=== PATIENT | male | born 1950 | race Caucasian/White ===

== ENCOUNTER 2025-05-11 09:42 | Emergency (ER) | payer OTHER, SELFPAY ==
[2025-05-11] VITALS (13 sets, daily range): BP systolic 97–165; BP diastolic 49–77; PULSE 49–77; RESP 12–21; TEMP 36.3; O2SAT 90–97; BMI 32.3
--- NOTE | 2025-05-11 10:39 | XRR_ITS ---
PROCEDURE INFORMATION: Exam: XR Chest Exam date and time: 05/11/2025 10:46 AM Age: 74 years old Clinical indication: Cough and dyspnea; Additional info: Dyspnea/cough TECHNIQUE: Imaging protocol: Radiologic exam of the chest. Views: 1 view. COMPARISON: No relevant prior studies available. FINDINGS: Lungs: Suboptimal pulmonary expansion with associated accentuation of bronchovascular markings. Borderline pulmonary vascular congestion accentuated by technique. Pleural spaces: No pleural effusion. Heart/Mediastinum: Cardiomediastinal contours accentuated by low lung volumes and AP technique. Bones/joints: Right shoulder replacement. Nonspecific basilar pulmonary opacities including coarsened reticular markings and ground-glass opacities are present, greater on the left. In absence of prior studies, findings indeterminate for scar, atelectasis and/or pneumonitis. XR/XR chest 1V portable 39684 IMPRESSION: Evaluation limited by portable technique in absence of prior exams. Nonspecific basilar pulmonary opacities of indeterminate chronicity; comparison with older studies and/or PA and lateral projections could be helpful further assessment.
--- NOTE | 2025-05-11 10:40 | CT_ITS ---
WS: [id number] CT HEAD TECHNIQUE: Noncontrast CT of the head obtained from the skullbase to the vertex. CLINICAL INFORMATION: AMS COMPARISON: None. DLP: 1366.[address] scans at [facility] use at least one of these dose optimization techniques: automated exposure control; mA and/or kV adjustment per patient size (includes targeted exams where dose is matched to clinical indication); or iterative reconstruction. FINDINGS: No evidence of intracranial hemorrhage. Air-fluid levels overlying the frontal lobes bilaterally with scattered locules of air overlying the LEFT greater than RIGHT frontal lobes and extending along the interhemispheric fissure. Small amount of low-attenuation subdural fluid overlying the frontal lobes. Some of this may be due to recent spine surgery but suspicious for superimposed infection. Small amount of air extends over both cerebral convexities at the vertex. No mass effect or hydrocephalus. Moderate small vessel changes. Moderate parenchymal volume loss. Vascular calcification. No visualized calvarial fractures. Mastoid air cells are well aerated. CT/CT head wo con* 13512 IMPRESSION: 1. No evidence of intracranial hemorrhage 2. Air-fluid levels overlying the inferior frontal lobes bilaterally with scat tered locules of air over the LEFT greater than RIGHT hemispheres extending yoni ng the interhemispheric fissure. Small amount of subdural extra-axial fluid. So me of this may be postoperative from recent spine surgery but consider superimp osed infection. This can be seen with dural tears or CSF leaks related to spine surgery 3. No visualized calvarial fractures. 4. No hydrocephalus.
--- NOTE | 2025-05-11 10:47 | CT_ITS ---
WS: [id number] CT CERVICAL TRAUMA TECHNIQUE: Noncontrast CT of the cervical spine with coronal and sagittal reformatted images. CLINICAL INFORMATION: neck pain COMPARISON: None. DLP: 1366.[address] scans at [facility] use at least one of these dose optimization techniques: automated exposure control; mA and/or kV adjustment per patient size (includes targeted exams where dose is matched to clinical indication); or iterative reconstruction. FINDINGS: Postoperative changes of decompressive laminectomy defects at C4 and C5 with decompression of the spinal canal. Low-attenuation fluid in the laminectomy defect with a few locules of air. Fluid collection measures approximately 5.2 x 3.1 cm. Canal stenosis appears improved. Multilevel bony foraminal narrowing with spondylitic changes. Fluid collection may be due to postoperative seroma but locules of air are suspicious for infection or CSF leak CT/CT cervical spin wo con* [id number] IMPRESSION: 1. Postoperative changes C4-5 decompressive laminectomies with low-attenuation fluid in the laminectomy defects with a few locules of air. This may be due to postoperative seroma but suspicious for superimposed infection and/or CSF leak . 2. No high-grade central canal stenosis.
[2025-05-11 10:56] LABS: Glucose Point of Care 122 mg/dL (70-110)
[2025-05-11 11:42] LABS: Basophils % 0.1 %; Eosinophils % 0.5 %; Hematocrit 39.9 % (37-53); Lymphocytes # 1.1 10^3/uL (0.8-4.8); Lymphocytes % 12.5 %; Mean Corpuscular HGB Conc 33.1 g/dL (30-55); Mean Corpuscular Hemoglobin 32.9 pg (27-33); Mean Corpuscular Volume 99.5 fl (82-101); Mean Platelet Volume 9.4 fL (7.4-10.4); Monocytes # 0.9 10^3/uL (0.2-0.9); Monocytes % 10.7 %; Neutrophils # 6.43 10^3/uL (1.8-7.7); Neutrophils % 74.8 %; Nucleated Red Blood Cells % 0 %; Platelet Count 258 10^3/cmm (157-399); Red Blood Count 4.01 10^6/uL (3.85-5.65); Red Cell Distribution Width 13.3 % (12.1-15.1); White Blood Count 8.59 10^3/uL (3.29-11.43)
--- NOTE | 2025-05-11 11:55 | ECG_ITS ---
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 Measurements Intervals [place] Rate: 51 P: 61 [place]: 169 QRS: 32 QRSD: 104 T: 53 QT: 499 QTc: 460 Interpretive Statements SINUS BRADYCARDIA PROLONGED QT INTERVAL No previous ECG available for comparison Electronically Signed On 05-13-2025 06:18:36 CDT by Pb Mayorga M.D. [email or web address]
[2025-05-11 12:03] LABS: Alanine Aminotransferase 65 U/L (0-41); Albumin Level 3.7 g/dL (3.5-5.2); Alcohol Level 56 mg/dL (0-10); Alkaline Phosphatase 74 U/L (40-130); Anion Gap 22.6 (5-19); Aspartate Amino Transferase 44 U/L (0-40); Blood Urea Nitrogen 22 mg/dL (8-23); C Reactive Protein 7.2 mg/L (0.0-4.9); Calcium 8.4 mg/dL (8.5-10.5); Carbon Dioxide 17 mmol/L (22-29); Chloride 98 mmol/L (98-107); Creatinine Clr Calc Pharmacy 70.5193; Globulin 2.3 g/dL (1.3-4.6); Glucose 103 mg/dL (65-115); Lipase 43 U/L (13-60); Osmolality Calculated 282 mOsm/kg (285-295); Potassium 3.6 mmol/L (3.5-5.1); Sodium 134 mmol/L (136-145); Total Bilirubin 0.2 mg/dL (0.15-1.2); Troponin(5th) Baseline 10 ng/L (0-15)
[2025-05-11 12:04] LABS: Acetaminophen < 5.0 ug/mL (10-30); Salicylate < 0.3 mg/dL (3-10)
--- NOTE | 2025-05-11 12:17 | W.ED.WEAKNES ---
HPI - Weakness General: Chief complaint: Weakness Stated complaint: AMS Time Seen by Provider: 05/11/25 10:39 History of Present Illness: 74-year-old male presents emergency room for weakness. Patient was found by his family on sitting on the toilet around 5 AM at 845 they called EMS and is still not able to get up. Patient admits to having been drinking heavily all night his blood alcohol is still elevated. He is complaining of continued neck pain he recently had a mass in his neck that was biopsied had a cervical laminectomy then mass was biopsied this was done at [facility] in [place]. He now is complaining of neck pain. He denies fever he is slow to answer but is able to answer questions. Associated symptoms: Denies chest pain, chills, dysuria or fever(s) Review of Systems Const: Denies: fever(s) or chills Card: Denies: chest pain Resp: Denies: dyspnea GI: Denies: abdominal pain : Denies: dysuria, urinary frequency or urinary urgency Musc: Reports: neck pain; Denies: back pain Skin/Breast: Denies: rash Physical Exam Const: ORIENTATION/CONSCIOUSNESS: Yes awake HENMT: COMMON NORMALS: normocephalic, atraumatic and hearing grossly normal bilaterally HEAD & SCALP: normocephalic and atraumatic Resp: COMMON NORMALS: normal respiratory effort, No retractions, No use of accessory muscles and clear to auscultation bilaterally AUSCULTATION: clear to auscultation bilaterally Cardio: COMMON NORMALS: regular rate, regular rhythm and No murmurs present (Cardio) RATE: regular rate RHYTHM: regular rhythm GI: COMMON NORMALS: Soft to palpation and No hepatosplenomegaly present AUSCULTATION: Yes normoactive bowel sounds PALPATION: Yes Soft to palpation, No Tenderness to palpation present (GI), No Guarding due to palpation present (GI) and Yes No hepatosplenomegaly present Extremity: COMMON NORMALS: normal to inspection, capillary refill normal, no clubbing, cyanosis or edema, no calf tenderness and no pedal edema Skin: COMMON NORMALS: no rashes or lesions noted GENERAL SKIN EXAM: no rashes or lesions noted Course Vital Signs: Vital signs: Vital Signs Temperature 97.4 F L 05/11/25 09:50 Pulse Rate 68 05/11/25 18:06 Respiratory Rate 16 05/11/25 17:00 Blood Pressure 165/77 05/11/25 18:06 Pulse Oximetry 97 05/11/25 18:06 MDM - Weakness Medical Decision Making CTs of the neck and head that showed pneumocephaly and air-fluid levels concerning for possible postop infection discussed with neurosurgery at . They would like to have the patient come back up if they are making arrangements for transfer. Prophylactically started him on Vanco and Zosyn his lactate is slightly elevated at 2.4. His white count is normal. Discussed with his neurosurgery at [place] refers to his procedure done and they agree to accept the patient in transfer are concerned about his findings and his ability to manage his own levels of care. They agree with antibiotics at this time. Medical Records I reviewed the patient's medical records. Lab Data I reviewed the patient's lab results. 05/11/25 11:25 05/11/25 11:25 Radiology Impressions Chest X-Ray 05/11/25 10:39 IMPRESSION: Evaluation limited by portable technique in absence of prior exams. Nonspecific basilar pulmonary opacities of indeterminate chronicity; comparison with older studies and/or PA and lateral projections could be helpful further assessment. Head CT 05/11/25 10:40 IMPRESSION: 1. No evidence of intracranial hemorrhage 2. Air-fluid levels overlying the inferior frontal lobes bilaterally with scattered locules of air over the LEFT greater than RIGHT hemispheres extending along the interhemispheric fissure. Small amount of subdural extra-axial fluid. Some of this may be postoperative from recent spine surgery but consider superimposed infection. This can be seen with dural tears or CSF leaks related to spine surgery 3. No visualized calvarial fractures. 4. No hydrocephalus. Cervical Spine CT 05/11/25 10:47 IMPRESSION: 1. Postoperative changes C4-5 decompressive laminectomies with low-attenuation fluid in the laminectomy defects with a few locules of air. This may be due to postoperative seroma but suspicious for superimposed infection and/or CSF leak. 2. No high-grade central canal stenosis. Laboratory Results WBC 8.59 10^3/uL (3.29-11.43) 05/11/25 11:25 RBC 4.01 10^6/uL (3.85-5.65) 05/11/25 11:25 Hgb 13.20 g/dL (11.27-16.99) 05/11/25 11:25 Hct 39.9 % (37-53) 05/11/25 11:25 MCV 99.5 fl (82-101) 05/11/25 11:25 MCH 32.9 pg (27-33) 05/11/25 11:25 MCHC 33.1 g/dL (30-55) 05/11/25 11:25 RDW 13.3 % (12.1-15.1) 05/11/25 11:25 Plt Count 258 10^3/cmm (157-399) 05/11/25 11:25 MPV 9.4 fL (7.4-10.4) 05/11/25 11:25 Neut % (Auto) 74.8 % 05/11/25 11:25 Lymph % (Auto) 12.5 % 05/11/25 11:25 [place] % (Auto) 10.7 % 05/11/25 11:25 Eos % (Auto) 0.5 % 05/11/25 11:25 Baso % (Auto) 0.1 % 05/11/25 11:25 Neut # (Auto) 6.43 10^3/uL (1.8-7.7) 05/11/25 11:25 Lymph # (Auto) 1.1 10^3/uL (0.8-4.8) 05/11/25 11:25 [place] # (Auto) 0.9 10^3/uL (0.2-0.9) 05/11/25 11:25 Eos # (Auto) 0.0 10^3/uL (0.0-0.8) 05/11/25 11:25 Baso # (Auto) 0.0 10^3/uL (0.0-0.1) 05/11/25 11:25 Nucleated RBC % (auto) 0 % 05/11/25 11:25 Nucleated RBCs # 0.0 /100WBC 05/11/25 11:25 Sodium 134 mmol/L (136-145) L 05/11/25 11:25 Potassium 3.6 mmol/L (3.5-5.1) 05/11/25 11:25 Chloride 98 mmol/L (98-107) 05/11/25 11:25 Carbon Dioxide 17 mmol/L (22-29) L 05/11/25 11:25 Anion Gap 22.6 (5-19) H 05/11/25 11:25 BUN 22 mg/dL (8-23) 05/11/25 11:25 Creatinine 1.1 mg/dL (0.7-1.2) 05/11/25 11:25 GFR Calculation Not Reportable 05/11/25 11:25 Glucose 103 mg/dL (65-115) 05/11/25 11:25 POC Glucose 122 mg/dL (70-110) H 05/11/25 10:50 Calculated Osmolality 282 mOsm/kg (285-295) L 05/11/25 11:25 Lactic Acid 2.4 mmol/L (0.5-2.2) H 05/11/25 14:05 Lactic Acid (Sepsis) 1.5 mmol/L (0.5-2.2) 05/11/25 17:40 Calcium 8.4 mg/dL (8.5-10.5) L 05/11/25 11:25 Total Bilirubin 0.2 mg/dL (0.15-1.2) 05/11/25 11:25 AST 44 U/L (0-40) H 05/11/25 11:25 ALT 65 U/L (0-41) H 05/11/25 11:25 Alkaline Phosphatase 74 U/L (40-130) 05/11/25 11:25 Troponin T Baseline 10 ng/L (0-15) 05/11/25 11:25 Troponin T 120 Minute 9.23 ng/L (0-15) 05/11/25 14:05 Delta Troponin T -0.77 ABS# (0-10) L 05/11/25 14:05 Troponin T Hi Sens 6Hr 9.38 ng/L (0-15) 05/11/25 17:40 Troponin T Hi Sens 6Hr Delta -0.62 ng/L (0-12) L 05/11/25 17:40 C-Reactive Protein 7.2 mg/L (0.0-4.9) H 05/11/25 11:25 Total Protein 6.0 g/dL (6.6-8.7) L 05/11/25 11:25 Albumin 3.7 g/dL (3.5-5.2) 05/11/25 11:25 Globulin 2.3 g/dL (1.3-4.6) 05/11/25 11:25 Lipase 43 U/L (13-60) 05/11/25 11:25 Urine Color Yellow (Yellow) 05/11/25 15:10 Urine Appearance Clear (CLEAR) 05/11/25 15:10 Urine pH 6.5 (5-7) 05/11/25 15:10 Ur Specific [place] 1.015 (1.005-1.030) 05/11/25 15:10 Urine Protein 1+ (Negative) A 05/11/25 15:10 Urine Glucose (UA) Negative (Normal) 05/11/25 15:10 Urine Ketones Negative (Negative) 05/11/25 15:10 Urine Blood Negative (Negative) 05/11/25 15:10 Urine Nitrate Negative (Negative) 05/11/25 15:10 Urine Bilirubin Negative (Negative) 05/11/25 15:10 Urine Urobilinogen 1.0 mg/dL (Negative) 05/11/25 15:10 Ur Leukocyte Esterase Negative (Negative) 05/11/25 15:10 Urine RBC 0-2 /hpf (0-2) 05/11/25 15:10 Urine WBC 0-5 /hpf (0-5) 05/11/25 15:10 Ur Squamous Epith Cells 0-5 /hpf (0-5) 05/11/25 15:10 Amorphous Sediment Not Reportable 05/11/25 15:10 Urine Bacteria None seen /hpf (NONE) 05/11/25 15:10 Hyaline Casts 7.01 /lpf 05/11/25 15:10 Salicylates < 0.3 mg/dL (3-10) L 05/11/25 11:25 Acetaminophen < 5.0 ug/mL (10-30) L 05/11/25 11:25 Ethyl Alcohol 56 mg/dL (0-10) H 05/11/25 11:25 All radiology interpretation(s) finalized by discharge Discharge Plan Discharge Patient Disposition: Xfer Short-Term Hosp Clinical Impression: Cervical post-laminectomy syndrome, Pneumocephalus Condition: Stable Patient Instructions: Opioid Safety, Pain Management Print Language: Lithuanian Coding Level of Care Code ED Wooden Frame Builder for Chg Fwd Related Data Home Medications ?Medication ?Instructions ?Recorded ?Confirmed albuterol sulfate 90 mcg/actuation 2 puff inhalation QID PRN 06/17/25 06/17/25 aerosol inhaler Shortness Of Breath alprostadil 40 mcg intracavernosal 40 mcg intra-cavernosal PRN PRN 05/11/25 05/11/25 kit Erectile Dysfunction mirtazapine 15 mg tablet 17.55 mg PO QAM 05/11/25 05/11/25 oxycodone 10 mg tablet 10 mg PO Q6H PRN Pain 05/11/25 05/11/25 pantoprazole 20 mg tablet,delayed 20 mg PO BID 05/11/25 05/11/25 release polyethylene glycol 3350 17 17 g PO DAILY PRN Constipation 05/11/25 05/11/25 gram/dose oral powder (Miralax) prednisone 10 mg tablet 10 mg PO DIRECTED 05/11/25 05/11/25 pregabalin 75 mg capsule (Lyrica) 75 mg PO BID 05/11/25 05/11/25
--- NOTE | 2025-05-11 12:40 | ECG_ITS ---
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 Measurements Intervals [place] Rate: 50 P: 52 SD: 141 QRS: 33 QRSD: 101 T: 55 QT: 459 QTc: 421 Interpretive Statements SINUS BRADYCARDIA Compared to ECG 05/11/2025 11:55:02 Prolonged QT interval no longer present Electronically Signed On 05-13-2025 06:31:04 CDT by Pb Mayorga M.D. [email or web address]
[2025-05-11] MEDS: piperacillin-tazobactam 3.375 GM in sodium chloride 0.9% (plus) 50 ML IV (13:38)
[2025-05-11] MEDS: VANCOMYCIN ADD-Vantage 1,000 MG in 0.9% NaCl ADD-Vantage 250 ML 250 MG IV (13:41)
[2025-05-11 14:44] LABS: Lactic Sepsis W/Reflex 2.4 mmol/L (0.5-2.2)
[2025-05-11 14:45] LABS: Troponin 5 2HR 9.23 ng/L (0-15)
[2025-05-11 14:54] LABS: Troponin 5 2HR Delta -0.77 ABS# (0-10)
[2025-05-11 15:47] LABS: Bilirubin Urine Negative (Negative); Blood Urine Negative (Negative); Glucose Urine UA Negative (Normal); Ketones Urine Negative (Negative); Leukocyte Esterase Urine Negative (Negative); Nitrate Urine Negative (Negative); Protein Urine 1+ (Negative); Specific Gravity, Urine 1.015 (1.005-1.030); Urine Appearance Clear (CLEAR); Urine Color Yellow (Yellow); pH Urine 6.5 (5-7)
[2025-05-11 16:08] LABS: Reflex Lactate Order REFLEX LACTIC ORDERD
--- NOTE | 2025-05-11 16:14 | PC.PHAR ---
Pt is [facility]. They do not have the orders for the steroid or the percocet. [facility] does not have them either.
[2025-05-11 16:36] LABS: Add Urine Microscopic? YES; Bacteria Urine None Seen /hpf; Hyaline Casts Urine 7.01 /lpf; RBC Urine 0-2 /hpf (0-2); Squamous Epithelial Cell Urine 0-5 /hpf (0-5); WBC Urine 0-5 /hpf (0-5)
--- NOTE | 2025-05-11 16:40 | ECG_ITS ---
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 Measurements Intervals [place] Rate: 69 P: 67 [place]: 172 QRS: 16 QRSD: 100 T: 60 QT: 398 QTc: 428 Interpretive Statements SINUS RHYTHM Compared to ECG 05/11/2025 13:10:23 Sinus bradycardia no longer present Electronically Signed On 05-13-2025 06:27:52 CDT by Pb Mayorga M.D. [email or web address]
[2025-05-11 18:06] LABS: Lactic Acid level (Lactate) 1.5 mmol/L (0.5-2.2)
[2025-05-11 18:11] LABS: Troponin 5 6HR 9.38 ng/L (0-15)
[2025-05-11 18:12] LABS: Troponin 5 6HR Delta -0.62 ng/L (0-12)
== END 2025-05-11 18:06 | disposition short-term general hospital (02) ==
PROVIDERS: Emergency Provider Family Medicine
DX: M96.1 Postlaminectomy syndrome, not elsewhere classified (principal); G93.89 Other specified disorders of brain; S06.89AA Other specified intracranial injury with loss of consciousness status unknown, initial encounter; X58.XXXA Exposure to other specified factors, initial encounter
CPT/HCPCS: 36415; 36416; 70450; 71045; 72125; 80053; 80307; 81001; 82962; 83605; 83690; 84484; 85025; 86140; 87040; 93005; 96365; 96366; 96367; 99285; J2543; J3370; J7030; J7050